=== PATIENT | female | born 2000 | race Caucasian/White ===

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

== ENCOUNTER 2019-05-11 18:42 | Emergency (ER) | payer MEDICAID ==
[~2019-05-11] VITALS: Ht 167.6 cm; Wt 57.3 kg
[~2019-05-11 18:42] MED LIST changes: +IBU800 M1 PO
[2019-05-11 18:48] VITALS: BP 110/67; TEMP 98.4
[2019-05-11 19:01] LABS: COLLECTION METHOD CLEAN CATCH
[2019-05-11 19:19] LABS: MUCOUS Present /lpf; PH 6 (5-8); URINE APPEARANCE Hazy; URINE BACTERIA None Seen /hpf; URINE BILIRUBIN Negative (NEGATIVE); URINE BLOOD Negative (NEGATIVE); URINE COLOR Yellow; URINE GLUCOSE Negative (NEGATIVE); URINE KETONE Negative (NEGATIVE); URINE LEUKOCYTE ESTERASE 2+ (NEGATIVE); URINE NITRATE Negative (NEGATIVE); URINE PROTEIN(semi-quant) Negative (NEGATIVE); URINE RBC 0-2 /hpf; URINE UROBILINOGEN Negative (NEGATIVE)
[2019-05-11 19:41] LABS: BASO % 0.2 % (0.0-2.0); EOS # 0.2 (0.0-0.7); EOS % 1.6 % (0-4.0); GRAN # 6.3 (1.4-6.5); GRAN % 69.5 % (42.2-75.2); HEMATOCRIT 40.4 % (35.0-45.0); HEMOGLOBIN 13.1 g/dl (12.0-15.0); LYMPH % 21.7 % (20.0-51.0); MEAN CELL VOLUME 89 fl (80.0-95.0); MEAN CORPUSCULAR HEMOGLOBIN 29 pg (26.0-32.0); MEAN CORPUSCULAR HGB CONC 32 g/dl (33.0-37.0); MEAN PLATELET VOLUME 11.6 fl (7.4-10.4); MONO # 0.6 (0.1-0.6); MONO % 6.7 % (1.7-9.3); PLATELET COUNT 213 K/mm3 (130-400); RED BLOOD COUNT 4.56 M/mm3 (4.10-5.30); REDCELL DISTRIBUTION WIDTH-CV 12.7 % (11.5-14.5)
[2019-05-11] MEDS ORDERED: ZOLOFT 100MG100 MG PO (20:02)
[2019-05-11 23:19] VITALS: PULSE 73
== END 2019-05-11 23:16 | disposition home or self-care (01) ==
LOC: COL.ER 18:42
PROVIDERS: Emergency Medicine
DX: O20.0 Threatened abortion (principal); O99.341 Other mental disorders complicating pregnancy, first trimester; Z3A.08 8 weeks gestation of pregnancy

== ENCOUNTER 2019-06-25 15:42 | Emergency (ER) | payer MEDICAID ==
[~2019-06-25] VITALS: Ht 167.6 cm; Wt 59.1 kg
[~2019-06-25 15:42] MED LIST changes: +ZOLOFT 100MG100 MG PO
[2019-06-25 16:18] VITALS: TEMP 97.7
[2019-06-25] MEDS ORDERED: OMNICEF 300MG300 MG PO (16:34)
[2019-06-25 16:56] VITALS: BP 115/66; PULSE 91
== END 2019-06-25 16:56 | disposition home or self-care (01) ==
LOC: COL.ER 15:42
DX: J01.90 Acute sinusitis, unspecified (principal); H69.91 Unspecified Eustachian tube disorder, right ear; F32.9 Major depressive disorder, single episode, unspecified